=== PATIENT | female | born 1960 | race Hispanic/Latino ===

== ENCOUNTER 2017-03-29 08:30 | Outpatient (CLI) | payer BC ==
--- NOTE | 2017-03-29 11:28 | Mammography Report ---
Bilateral mammogram: Routine views are obtained. This was scattered nodular densities throughout both breasts. Most of these are circumscribed and quite small. No suspicious findings. The remainder of the breast pattern is generally fatty replaced. Comparison to outside images at 2015 and 2016 show no significant changes. CAD used. Impression: Stable nodular pattern. Recommendation: Annual mammogram followup. BI-RADS CATEGORY: 2 = Benign ACR BI-RADS MAMMOGRAPHIC CODES: 0 = Needs additional imaging evaluation; 1 = Negative; 2 = Benign; 3 = Probably benign; 4 = Suspicious; 5 = Malignant; 6 = Known biopsy-proven malignancy COMMENT: 1. Dense breast tissue, i.e., adenosis, fibrocystic changes, etc., may obscure an underlying neoplasm. 2. Approximately 10% of cancers are not detected with mammography. 3. A negative mammography report should not delay biopsy if a clinically suspicious mass is present.
== END 2017-03-29 08:31 | disposition home or self-care (01) ==
LOC: MAMMO 08:30
PROVIDERS: ATTEND Obstetrics & Gynecology
DX: R92.8 Other abnormal and inconclusive findings on diagnostic imaging of breast (principal)
CPT/HCPCS: 77066; G0204

== ENCOUNTER 2017-08-12 10:11 | Outpatient (CLI) | payer BC ==
--- NOTE | 2017-08-12 15:39 | Ultrasound Report ---
ULTRASOUND PELVIS COMPLETE - TRANSABDOMINAL AND TRANSVAGINAL: INDICATION: Screening. RLQ pain. COMPARISON: None similar. FINDINGS: Transabdominal and transvaginal pelvic sonography in this postmenopausal patient demonstrates an anteverted 8.8 x 3.8 x 4.9 cm uterus with endometrial thickness approximately 0.5 cm, endovaginal image 7. At least 3 upper uterine fibroids ranging between 1-2 cm noted on endovaginal images 12-18. No significant free fluid. Unremarkable ovaries, approximately 1.7 x 1 x 1 cm on the right and 1.6 x 1.3 x 1.5 cm on the left. CONCLUSION: Fibroids noted, as described. Thank you for the opportunity to participate in this patient's care.
== END 2017-08-12 10:12 | disposition home or self-care (01) ==
LOC: US 10:11
PROVIDERS: ATTEND Obstetrics & Gynecology
DX: D25.9 Leiomyoma of uterus, unspecified (principal); N85.4 Malposition of uterus; Z78.0 Asymptomatic menopausal state
CPT/HCPCS: 76830; 76856

== ENCOUNTER 2018-04-07 13:04 | Outpatient (CLI) | payer BC ==
--- NOTE | 2018-04-07 15:10 | Mammography Report ---
BILATERAL DIGITAL SCREENING MAMMOGRAM with CAD: 04/07/18 13:04:00 CLINICAL: Routine screening. COMPARISON: 03/29/17 FINDINGS: There are bilateral scattered areas of fibroglandular density.No mass, architectural distortion or suspicious calcifications. IMPRESSION: No mammographic evidence of malignancy. BI-RADS CATEGORY: 2 - - Benign RECOMMENDATION: Routine mammographic screening in one year. COMMENT: Patient follow-up letters are generated by our [employer] application.
== END 2018-04-07 13:05 | disposition home or self-care (01) ==
LOC: MAMMO 13:04
PROVIDERS: ATTEND Family Medicine
DX: Z12.31 Encounter for screening mammogram for malignant neoplasm of breast (principal)
CPT/HCPCS: 77067

== ENCOUNTER 2018-04-24 08:07 | Day surgery (SDC) | payer BC ==
--- NOTE | 2018-04-24 08:51 | Anesthesia Consultation ---
Anesthesia Consult and Med Hx Date of service: 04/24/18 - Airway Anesthetic Teeth Evaluation: Good ROM Head & Neck: Adequate Mental/Hyoid Distance: Adequate Mallampati Class: Class II Intubation Access Assessment: Probably Good - Pulmonary Exam CTA: Yes - Cardiac Exam Cardiac Exam: RRR - Pre-Operative Health Status ASA Pre-Surgery Classification: ASA3 Proposed Anesthetic Plan: MAC - Endocrine Hx Non-Insulin Dependent Diabetes: Yes Hx Hypothyroidism: Yes - Other Systems Hx Cancer: No (Family H/O colon cancer) - Additional Comments Anesthesia Medical History Comments: hypercholesterolemia
--- NOTE | 2018-04-24 08:51 | Anesthesia Day of Surgery ---
Anesthesia Day of Surgery - Day of Surgery Patient Examined: Yes Patient H&P Reviewed: Yes Patient is NPO: Yes
[2018-04-24] MEDS ORDERED: NACL 0.9% 1000 ML 1,000 ML IV SCH (09:00)
[2018-04-24] MEDS ORDERED: DIPRIVAN 10 MG/ML IV ONE ×2 (09:48)
--- NOTE | 2018-04-24 10:09 | Post Operative Note ---
Date of procedure: 04/24/18 Pre-op diagnosis: Screening colonoscopy, change in bowel habits Post-op diagnosis: other (small cecal polyp, internal hemorrhoids) Findings: Small cecal polyp removed with cold biopsy forceps Internal hemorrhoids Procedure: Colonoscopy with biopsy Anesthesia: MAC Surgeon: WASHINGTON TIJERINA Estimated blood loss: minimal Pathology: list (Jar A - cecal polyp) Specimen disposition: to lab Condition: stable Disposition: same day
--- NOTE | 2018-04-24 10:12 | Operative Report ---
Operative Report Operative Report: Colonoscopy Procedure Note with Biopsy forceps Date of procedure: 04/24/2018 Endoscopist: Pablo Cooney Pre-op diagnosis: Screening for colon cancer; change in bowel habits Post-op diagnosis: small cecal polyp removed with cold biopsy forceps; internal hemorrhoids Anesthesia: MAC Complications: No immediate complications Estimated blood loss: minimal Procedure: After consent was obtained, the patient was placed in the left lateral decubitus position. The fujinon colonoscope was inserted into the pat ient's rectum under direct vision, and advanced to the cecum without difficulty. The patient tolerated the procedure well. The views of the mucosa were good. The quality of prep was good. The patient's vital signs were monitored continuously throughout the procedure. Findings: There was an ~2mm sessile polyp in the cecal polyp removed and retrieved with cold biopsy forceps. Internal hemorrhoids were visualized on retro-flexion view. Impression: 1. Small cecal polyp removed with cold biopsy forceps 2. Internal hemorrhoids Recommendations: -follow-up pathology -repeat colonoscopy in 3-5 years for surveillance based on pathology results and due to family history of colon cancer
--- NOTE | 2018-04-24 10:26 | Post Anesthesia Evaluation ---
- Post Anesthesia Evaluation Patient Participated: Yes Airway Patent: Yes Stable Respiratory Function: Yes Temp > 96.8F: Yes Pain Manageable: Yes Adequeate Hydration: Yes Anesthesia Complications: No
[2018-04-24 10:54] VITALS: BP 110/45
== END 2018-04-24 08:08 | disposition home or self-care (01) ==
LOC: GIO 08:07
PROVIDERS: ATTEND Internal Medicine Gastroenterology
DX: D12.0 Benign neoplasm of cecum (principal); K64.8 Other hemorrhoids; E11.9 Type 2 diabetes mellitus without complications; E03.9 Hypothyroidism, unspecified; Z79.899 Other long term (current) drug therapy; Z79.82 Long term (current) use of aspirin; Z79.84 Long term (current) use of oral hypoglycemic drugs; E78.00 Pure hypercholesterolemia, unspecified; Z90.49 Acquired absence of other specified parts of digestive tract; Z80.0 Family history of malignant neoplasm of digestive organs; Z98.890 Other specified postprocedural states; Z98.891 History of uterine scar from previous surgery
CPT/HCPCS: 45380; 82962; 88305; J2704; J7030

== ENCOUNTER 2018-06-21 14:11 | Emergency (ER) | payer BC, OTHER ==
--- NOTE | 2018-06-21 14:33 | Emergency Department Report ---
Blank Doc - Documentation Documentation: This is a 58-year-old female that presents with left foot pain s/p equipment d ropped on her. This initial assessment/diagnostic orders/clinical plan/treatment(s) is/are subject to change based on patient's health status, clinical progression and re- assessment by fellow clinical providers in the ED. Further treatment and workup at subsequent clinical providers discretion. Patient/guardians urged not to elope from the ED as their condition may be serious if not clinically assessed and managed. Initial orders include: 1- Patient sent to [facility] for further evaluation and treatment 2- xray
[2018-06-21 14:40] VITALS: BP 135/65
--- NOTE | 2018-06-21 14:48 | Emergency Department Report ---
<LINCOLN MOORE - Last Filed: 06/21/18 16:14> ED Lower Extremity HPI - General Chief Complaint: Extremity Injury, Lower Stated Complaint: L FOOT PAIN Time Seen by Provider: 06/21/18 14:31 - Related Data Home Medications Medication Instructions Recorded Confirmed Last Taken Aspirin 1 tab PO DAILY 04/24/18 04/24/18 04/17/18 Citalopram Hydrobromide 1 tab PO HS 04/24/18 04/24/18 04/22/18 [Citalopram HBr] Levothyroxine [Synthroid] 1 tab PO DAILY 04/24/18 04/24/18 04/23/18 Metformin HCl 1 tab PO DAILY 04/24/18 04/24/18 04/23/18 Simvastatin 1 tab PO HS 04/24/18 04/24/18 04/22/18 glipiZIDE XL [Glucotrol Xl] 1 tab PO DAILY 04/24/18 04/24/18 04/23/18 Previous Rx's Medication Instructions Recorded Last Taken Type Ibuprofen [Motrin] 600 mg PO Q8H PRN #20 tablet 06/21/18 Unknown Rx traMADol [Ultram] 50 mg PO Q6HR PRN #10 tablet 06/21/18 Unknown Rx Allergies Allergy/AdvReac Type Severity Reaction Status Date / Time No Known Allergies Allergy Verified 04/24/18 08:37 ED Past Medical Hx - Medications Home Medications: Home Medications Medication Instructions Recorded Confirmed Last Taken Type Aspirin 1 tab PO DAILY 04/24/18 04/24/18 04/17/18 History Citalopram Hydrobromide 1 tab PO HS 04/24/18 04/24/18 04/22/18 History [Citalopram HBr] Levothyroxine [Synthroid] 1 tab PO DAILY 04/24/18 04/24/18 04/23/18 History Metformin HCl 1 tab PO DAILY 04/24/18 04/24/18 04/23/18 History Simvastatin 1 tab PO HS 04/24/18 04/24/18 04/22/18 History glipiZIDE XL [Glucotrol Xl] 1 tab PO DAILY 04/24/18 04/24/18 04/23/18 History Ibuprofen [Motrin] 600 mg PO Q8H PRN #20 tablet 06/21/18 Unknown Rx traMADol [Ultram] 50 mg PO Q6HR PRN #10 tablet 06/21/18 Unknown Rx ED Physical Exam - Expanded Lower Extremity Exam Left Foot/Toe exam: Present: tenderness (patient also had some lateral mid foot pain as well) ED Lower Extremity MDM - Radiology Data Radiology results: image reviewed (patient with a chip fracture of the proximal fifth metatarsal) - Medical Decision Making Patient fluid and a ortho shoe will be discharged home ED Disposition Clinical Impression: Metatarsal fracture Disposition: - TO HOME OR SELFCARE Is pt being admited?: No Does the pt Need Aspirin: No Condition: Stable Instructions: Foot Fracture in Adults (ED) Additional Instructions: Follow-up with a orthopedic doctor in 3-5 days or if symptoms worsen and continue return to the emergency department as soon as possible. Prescriptions: Ibuprofen [Motrin] 600 mg PO Q8H PRN #20 tablet PRN Reason: Pain traMADol [Ultram] 50 mg PO Q6HR PRN #10 tablet PRN Reason: Pain Referrals: LUTHER WALKER DPM [Staff Physician] - 3-5 Days Time of Disposition: 16:18 <ALONDRA WOLFF - Last Filed: 06/21/18 16:27> ED Lower Extremity HPI - General Source: patient Mode of arrival: Ambulatory Limitations: No Limitations - History of Present Illness Initial Comments: This is a 58-year-old female that presents with left foot pain. Stated that at work a chair fell on her foot. Denies any other complaints or trauma. Denies decreased sensation or ROM. Denies any allergies. MD Complaint: foot injury -: This afternoon Injury: Foot: Left Place: work Severity: mild Severity scale (0 -10): 8 Improves With: nothing Worsens With: nothing Associated Symptoms: ambulatory. denies: snap/pop sensation, swelling, numbness, tingling, unable to bear weight, able to partially bear weight ED Review of Systems ROS: Stated complaint: L FOOT PAIN Other details as noted in HPI Constitutional: denies: chills, fever Eyes: denies: eye pain, eye discharge, vision change ENT: denies: ear pain, throat pain Respiratory: denies: cough, shortness of breath, wheezing Cardiovascular: denies: chest pain, palpitations Endocrine: no symptoms reported Gastrointestinal: denies: abdominal pain, nausea, diarrhea Genitourinary: denies: urgency, dysuria, discharge Musculoskeletal: denies: back pain, joint swelling, arthralgia Skin: denies: rash, lesions Neurological: denies: headache, weakness, paresthesias Psychiatric: denies: anxiety, depression Hematological/Lymphatic: denies: easy bleeding, easy bruising ED Past Medical Hx - Past Medical History Hx Diabetes: Yes - Surgical History Hx Cholecystectomy: Yes - Social History Smoking Status: Never Smoker Substance Use Type: None ED Physical Exam - General Limitations: No Limitations General appearance: alert, in no apparent distress - Head Head exam: Present: atraumatic, normocephalic - Extremities Exam Extremities exam: Present: normal inspection, full ROM, tenderness, normal capillary refill. Absent: joint swelling - Expanded Lower Extremity Exam Left Hip exam: Present: normal inspection, full ROM. Absent: tenderness Upper Leg exam: Present: normal inspection, full ROM. Absent: tenderness Knee exam: Present: normal inspection, full ROM. Absent: tenderness Lower Leg exam: Present: normal inspection, full ROM. Absent: tenderness Ankle exam: Present: normal inspection, full ROM. Absent: tenderness, swelling, abrasion, laceration, ecchymosis, deformity, crepidus, dislocation, erythema, a nterior draw sign Foot/Toe exam: Present: normal inspection, full ROM, tenderness, ecchymosis. Absent: swelling, abrasion, laceration, deformity, crepidus, dislocation, eryth shara, amputation, puncture wound, foreign body, calcaneal tenderness, tenderness at base of 5th metatarsal, nail avulsion, subungual hematoma Neuro vascular tendon exam: Present: no vascular compromise Gait: Positive: observed and normal 1 - pain here - Back Exam Back exam: Present: normal inspection, full ROM - Neurological Exam Neurological exam: Present: alert, oriented X3 - Psychiatric Psychiatric exam: Present: normal affect, normal mood - Skin Skin exam: Present: warm, dry, intact, normal color. Absent: rash ED Course Vital Signs 06/21/18 14:34 Temperature 97.7 F Pulse Rate 84 Respiratory 20 Rate Blood Pressure 135/65 O2 Sat by Pulse 96 Oximetry - Reevaluation(s) Reevaluation #1: 06/21/18 14:46 Patient is speaking in full sentences with no signs of distress noted. ED Lower Extremity MDM - Medical Decision Making This is a 58-year-old female that presents with left foot pain. Patient was signed out to Dr. Qasim Roberts for further evaluation and treatment. Critical care attestation.: If time is entered above; I have spent that time in minutes in the direct care of this critically ill patient, excluding procedure time.
--- NOTE | 2018-06-21 16:18 | XRay Report ---
PROCEDURE: XR FOOT 3+V LT TECHNIQUE: Left foot 3 views HISTORY: left foot pain COMPARISONS: FINDINGS: No acute fracture identified. No dislocation seen. Joint spaces are within normal limits. Partially u nfused apophysis base of the fifth metatarsal noted. No radiopaque foreign bodies are observed. IMPRESSION: Negative no acute abnormality. This document is electronically signed by Ayo Trammell MD., June 21 2018 04:16:17 PM ET
== END 2018-06-21 16:37 | disposition home or self-care (01) ==
LOC: ED 14:11
DX: S92.302A Fracture of unspecified metatarsal bone(s), left foot, initial encounter for closed fracture (principal); E11.9 Type 2 diabetes mellitus without complications; W20.8XXA Other cause of strike by thrown, projected or falling object, initial encounter; Y93.89 Activity, other specified; Y92.89 Other specified places as the place of occurrence of the external cause; Y99.8 Other external cause status

== ENCOUNTER 2018-10-20 11:39 | Emergency (ER) | payer BC, OTHER ==
[2018-10-20] MEDS ORDERED: DECADRON IV ONE (11:48)
[2018-10-20] MEDS ORDERED: DECADRON IM ONE (12:01)
--- NOTE | 2018-10-20 12:09 | Emergency Department Report ---
- General Chief Complaint: Upper Respiratory Infection Stated Complaint: COUGH Time Seen by Provider: 10/20/18 11:48 Source: patient Mode of arrival: Ambulatory Limitations: No Limitations - History of Present Illness Initial Comments: is a 58-year-old female with past history of diabetes who is presenting with 1 week of cough. Cough is minimally productive. Patient said shortness of breath with the cough. Patient denies any nausea vomiting fevers or chills. - Related Data Home Medications Medication Instructions Recorded Confirmed Last Taken Aspirin 1 tab PO DAILY 04/24/18 04/24/18 04/17/18 Citalopram Hydrobromide 1 tab PO HS 04/24/18 04/24/18 04/22/18 [Citalopram HBr] Levothyroxine [Synthroid] 1 tab PO DAILY 04/24/18 04/24/18 04/23/18 Metformin HCl 1 tab PO DAILY 04/24/18 04/24/18 04/23/18 Simvastatin 1 tab PO HS 04/24/18 04/24/18 04/22/18 glipiZIDE XL [Glucotrol Xl] 1 tab PO DAILY 04/24/18 04/24/18 04/23/18 Previous Rx's Medication Instructions Recorded Last Taken Type Ibuprofen [Motrin] 600 mg PO Q8H PRN #20 tablet 06/21/18 Unknown Rx traMADol [Ultram] 50 mg PO Q6HR PRN #10 tablet 06/21/18 Unknown Rx ALBUTEROL Inhaler (OR & NICU) 2 puff IH QID PRN #1 inhalation 10/20/18 Unknown Rx [ProAir HFA Inhaler] Azithromycin [Zithromax Z-GERMAN] 250 mg PO DAILY #6 tablet 10/20/18 Unknown Rx Benzonatate [Tessalon Perles] 100 mg PO Q8HR #10 capsule 10/20/18 Unknown Rx guaiFENesin/CODEINE [Robitussin AC] 5 ml PO Q6HR PRN #100 oral.liqd 10/20/18 Un known Rx Allergies Allergy/AdvReac Type Severity Reaction Status Date / Time No Known Allergies Allergy Verified 10/20/18 11:39 ED Review of Systems ROS: Stated complaint: COUGH Other details as noted in HPI Comment: All other systems reviewed and negative ED Past Medical Hx - Past Medical History Hx Diabetes: Yes - Surgical History Hx Cholecystectomy: Yes - Social History Smoking Status: Never Smoker Substance Use Type: None - Medications Home Medications: Home Medications Medication Instructions Recorded Confirmed Last Taken Type Aspirin 1 tab PO DAILY 04/24/18 04/24/18 04/17/18 History Citalopram Hydrobromide 1 tab PO HS 04/24/18 04/24/18 04/22/18 History [Citalopram HBr] Levothyroxine [Synthroid] 1 tab PO DAILY 04/24/18 04/24/18 04/23/18 History Metformin HCl 1 tab PO DAILY 04/24/18 04/24/18 04/23/18 History Simvastatin 1 tab PO HS 04/24/18 04/24/18 04/22/18 History glipiZIDE XL [Glucotrol Xl] 1 tab PO DAILY 04/24/18 04/24/18 04/23/18 History Ibuprofen [Motrin] 600 mg PO Q8H PRN #20 tablet 06/21/18 Unknown Rx traMADol [Ultram] 50 mg PO Q6HR PRN #10 tablet 06/21/18 Unknown Rx ALBUTEROL Inhaler (OR & NICU) 2 puff IH QID PRN #1 inhalation 10/20/18 Unknown Rx [ProAir HFA Inhaler] Azithromycin [Zithromax Z-GERMAN] 250 mg PO DAILY #6 tablet 10/20/18 Unknown Rx Benzonatate [Tessalon Perles] 100 mg PO Q8HR #10 capsule 10/20/18 Unknown Rx guaiFENesin/CODEINE [Robitussin AC] 5 ml PO Q6HR PRN #100 oral.liqd 10/20/18 Unknown Rx ED Physical Exam - General Limitations: No Limitations General appearance: alert, in no apparent distress - Head Head exam: Present: atraumatic, normocephalic - Eye Eye exam: Present: normal appearance - ENT ENT exam: Present: mucous membranes moist - Neck Neck exam: Present: normal inspection - Respiratory Respiratory exam: Present: normal lung sounds bilaterally. Absent: respiratory distress, wheezes, rales, rhonchi - Cardiovascular Cardiovascular Exam: Present: regular rate, normal rhythm. Absent: systolic murmur, diastolic murmur, rubs, gallop - GI/Abdominal GI/Abdominal exam: Present: soft, normal bowel sounds. Absent: distended, tenderness, guarding, rebound - Extremities Exam Extremities exam: Present: normal inspection - Back Exam Back exam: Present: normal inspection - Neurological Exam Neurological exam: Present: alert, oriented X3 - Psychiatric Psychiatric exam: Present: normal affect, normal mood - Skin Skin exam: Present: warm, dry, intact, normal color. Absent: rash ED Course Vital Signs 10/20/18 11:41 Temperature 97.7 F Pulse Rate 68 Respiratory 20 Rate Blood Pressure 133/57 O2 Sat by Pulse 98 Oximetry ED Medical Decision Making - Medical Decision Making Patient's oxygen saturation is within normal limits and lung sounds are clear except for when she coughs. Patient has a bronchitic cough. Patient will be started on Z-German secondary to his duration of symptoms and her diabetes status the patient also given meds for symptomatically Critical care attestation.: If time is entered above; I have spent that time in minutes in the direct care of this critically ill patient, excluding procedure time. ED Disposition Clinical Impression: Upper respiratory infection Qualifiers: URI type: unspecified URI Qualified Code(s): J06.9 - Acute upper respiratory infection, unspecified Disposition: DC-01 TO HOME OR SELFCARE Is pt being admited?: No Does the pt Need Aspirin: No Condition: Stable Instructions: Upper Respiratory Infection (ED) Time of Disposition: 12:04
[2018-10-20 12:24] VITALS: BP 125/74
== END 2018-10-20 12:22 | disposition home or self-care (01) ==
LOC: ED 11:39
DX: J06.9 Acute upper respiratory infection, unspecified (principal); E11.9 Type 2 diabetes mellitus without complications; Z90.49 Acquired absence of other specified parts of digestive tract; Z98.890 Other specified postprocedural states; Z79.84 Long term (current) use of oral hypoglycemic drugs
CPT/HCPCS: 96372

== ENCOUNTER 2019-04-20 08:04 | Outpatient (CLI) | payer BC ==
--- NOTE | 2019-04-23 08:28 | Mammography Report ---
DIGITAL SCREENING MAMMOGRAM WITH CAD, 04/20/2019 INDICATION: Routine screening mammography. TECHNIQUE: Digital bilateral 2D mammography was obtained in the craniocaudal and mediolateral obliq ue projections. This examination was interpreted with the benefit of Computer-Aided Detection analysi s. COMPARISON: 04/07/2018 FINDINGS: Breast Density: The breasts are almost entirely fatty. There is no evidence of dominant mass, suspicious calcifications or architectural distortion in eithe r breast. IMPRESSION: No mammographic evidence of malignancy. Follow up recommendation: Routine yearly BI-RADS Category 1: Negative. A "normal" or negative report should not discourage follow up or biopsy of a clinically significant f inding. A written summary of these findings will be mailed to the patient. The patient will be entered into a mammography reporting system which will generate a reminder letter for the patient's next appointmen t at the appropriate interval. The [employer] recommends yearly mammograms starting at age 40 and continuing as l leah as a woman is in good health. Breast MRI is recommended for women with an approximate 20-25% or greater lifetime risk of breast cancer, including women with a strong family history of breast or ova yessenia cancer or who have been treated for Hodgkin's disease. Signer Name: Terry Fishman MD Signed: 04/23/2019 8:23 AM Workstation Name: [id number]
== END 2019-04-20 08:05 | disposition home or self-care (01) ==
LOC: MAMMO 08:04
PROVIDERS: ATTEND Family Medicine
DX: Z12.31 Encounter for screening mammogram for malignant neoplasm of breast (principal); N64.89 Other specified disorders of breast
CPT/HCPCS: 77067

== ENCOUNTER 2019-06-04 10:22 | Emergency (ER) | payer BC ==
[2019-06-04] MEDS ORDERED: IBUPROFEN 800 MG TAB PO ONE (10:50)
--- NOTE | 2019-06-04 11:34 | Emergency Department Report ---
ED Fall HPI - General Chief Complaint: Fall Stated Complaint: FALL 06/01/2019 Time Seen by Provider: 06/04/19 10:26 Source: patient Mode of arrival: Ambulatory - History of Present Illness Initial Comments: This is a 59-year-old female nontoxic, well nourished in appearance, no acute signs of distress presents to the ED with c/o of right elbow and right lateral rib pain 1 week. Patient stated that she had a mechanical trip and fall. Patient denies any other trauma. Patient denies any neck pain or back pain. Patient denies any numbness, tingling, fever, chills, nausea, vomiting, chest pain, shortness of breath, headache, stiff neck. Patient denies any joint swelling or joint redness. Patient denies decreased range of motion. Patient stated has decreased gait due to pain. Patient denies any allergies. MD Complaint: fall -: week(s) Fall Witnessed: no Place Fall Occurred: street Loss of Consciousness: none Prolonged Down Time?: no Symptoms Prior to Fall: none Location - Extremities: Right: Elbow Severity: mild Severity scale (0 -10): 8 Quality: aching Context: tripped/slipped Associated Symptoms: denies. denies: headache, neck pain, numbness, weakness, chest paint, shortness of breath, abdominal pain, hematuria, unable to walk, l ightheaded, vertigo, confusion - Related Data Home Medications Medication Instructions Recorded Confirmed Last Taken Aspirin 1 tab PO DAILY 04/24/18 04/24/18 04/17/18 Citalopram Hydrobromide 1 tab PO HS 04/24/18 04/24/18 04/22/18 [Citalopram HBr] Levothyroxine [Synthroid] 1 tab PO DAILY 04/24/18 04/24/18 04/23/18 Metformin HCl 1 tab PO DAILY 04/24/18 04/24/18 04/23/18 Simvastatin 1 tab PO HS 04/24/18 04/24/18 04/22/18 glipiZIDE XL [Glucotrol Xl] 1 tab PO DAILY 04/24/18 04/24/18 04/23/18 Previous Rx's Medication Instructions Recorded Last Taken Type Ibuprofen [Motrin] 600 mg PO Q8H PRN #20 tablet 06/21/18 Unknown Rx traMADoL [Ultram] 50 mg PO Q6HR PRN #10 tablet 06/21/18 Unknown Rx Albuterol INH(or & Nicu Only) 2 puff IH QID PRN #1 inhalation 10/20/18 Unknown Rx [ProAir HFA Inhaler] Azithromycin [Zithromax Z-GERMAN] 250 mg PO DAILY #6 tablet 10/20/18 Unknown Rx Benzonatate [Tessalon Perles] 100 mg PO Q8HR #10 capsule 10/20/18 Unknown Rx guaiFENesin/CODEINE [Robitussin AC] 5 ml PO Q6HR PRN #100 oral.liqd 10/20/18 Unknown Rx Acetaminophen/Codeine [Tylenol 1 tab PO Q6H PRN #12 tab 06/04/19 Unknown Rx /Codeine # 3 tab] Allergies Allergy/AdvReac Type Severity Reaction Status Date / Time No Known Allergies Allergy Verified 10/20/18 11:39 ED Review of Systems ROS: Stated complaint: fall06/01/2019 Other details as noted in HPI Constitutional: denies: chills, fever Eyes: denies: eye pain, eye discharge, vision change ENT: denies: ear pain, throat pain Respiratory: denies: cough, shortness of breath, wheezing Cardiovascular: denies: chest pain, palpitations Endocrine: no symptoms reported Gastrointestinal: denies: abdominal pain, nausea, diarrhea Genitourinary: denies: urgency, dysuria, discharge Musculoskeletal: denies: back pain, joint swelling, arthralgia Skin: denies: rash, lesions Neurological: denies: headache, weakness, paresthesias Psychiatric: denies: anxiety, depression Hematological/Lymphatic: denies: easy bleeding, easy bruising ED Past Medical Hx - Past Medical History Hx Diabetes: Yes - Surgical History Hx Cholecystectomy: Yes - Social History Smoking Status: Never Smoker Substance Use Type: None - Medications Home Medications: Home Medications Medication Instructions Recorded Confirmed Last Taken Type Aspirin 1 tab PO DAILY 04/24/18 04/24/18 04/17/18 History Citalopram Hydrobromide 1 tab PO HS 04/24/18 04/24/18 04/22/18 History [Citalopram HBr] Levothyroxine [Synthroid] 1 tab PO DAILY 04/24/18 04/24/18 04/23/18 History Metformin HCl 1 tab PO DAILY 0104/24/18 04/23/18 History Simvastatin 1 tab PO HS 04/24/18 04/24/18 04/22/18 History glipiZIDE XL [Glucotrol Xl] 1 tab PO DAILY 04/24/18 04/24/18 04/23/18 History Ibuprofen [Motrin] 600 mg PO Q8H PRN #20 tablet 06/21/18 Unknown Rx traMADoL [Ultram] 50 mg PO Q6HR PRN #10 tablet 06/21/18 Unknown Rx Albuterol INH(or & Nicu Only) 2 puff IH QID PRN #1 inhalation 10/20/18 Unknown Rx [ProAir HFA Inhaler] Azithromycin [Zithromax Z-GERMAN] 250 mg PO DAILY #6 tablet 10/20/18 Unknown Rx Benzonatate [Tessalon Perles] 100 mg PO Q8HR #10 capsule 10/20/18 Unknown Rx guaiFENesin/CODEINE [Robitussin AC] 5 ml PO Q6HR PRN #100 oral.liqd 10/20/18 Unknown Rx Acetaminophen/Codeine [Tylenol 1 tab PO Q6H PRN #12 tab 06/04/19 Unknown Rx /Codeine # 3 tab] ED Physical Exam - General Limitations: No Limitations General appearance: alert, in no apparent distress - Head Head exam: Present: atraumatic, normocephalic - Neck Neck exam: Present: normal inspection, full ROM. Absent: tenderness, meningismus, lymphadenopathy - Respiratory Respiratory exam: Present: normal lung sounds bilaterally, chest wall tenderness. Absent: respiratory distress, wheezes, rales, rhonchi, stridor, accessory muscle use, decreased breath sounds, prolonged expiratory - Cardiovascular Cardiovascular Exam: Present: regular rate, normal rhythm, normal heart sounds. Absent: bradycardia, tachycardia, irregular rhythm, systolic murmur, diastolic murmur, rubs, gallop - Extremities Exam Extremities exam: Present: normal inspection, full ROM, tenderness, normal capillary refill. Absent: joint swelling - Expanded Upper Extremity Exam Right General: Present: normal inspection Shoulder Exam: Present: normal inspection, full ROM. Absent: tenderness, swelling Upper Arm exam: Present: normal inspection, full ROM. Absent: tenderness, swelling Elbow exam: Present: normal inspection, full ROM, tenderness. Absent: swelling, abrasion, laceration, ecchymosis, deformity, crepidus, dislocation, erythema, effusion, pain w/ pronation/supination, tenderness over radial head Forearm Wrist exam: Present: normal inspection, full ROM. Absent: tenderness, swelling Hand Wrist exam: Present: normal inspection, full ROM. Absent: tenderness, swelling Vascular: Present: vascular compromise, normal capillary refill - Back Exam Back exam: Present: normal inspection, full ROM - Neurological Exam Neurological exam: Present: alert, oriented X3, normal gait - Psychiatric Psychiatric exam: Present: normal affect, normal mood - Skin Skin exam: Present: warm, dry, intact, normal color. Absent: rash ED Course - Reevaluation(s) Reevaluation #1: 06/04/19 11:35 Patient is speaking in full sentences with no signs of distress noted. ED Medical Decision Making - Medical Decision Making This is a 59-year-old female that presents with right elbow strain and right sided chest contusion. Patient is stable and was examined by me. I referred patient to an orthopedic doctor for further evaluation for possible MRI. X-ray has been obtained and dictated by the radiologist. Patient is notified of the x-ray report with noted by the patient. Patient does have normal gait with no tenderness and no joint swelling. No ecchymosis. no joint redness or swelling. Not warm to touch. No signs of cellulites present. Patient received elbow sling. Patient was instructed to RICE therapy. Patient received Motrin for pain. Patient is discharged with Naproxen. At time of discharge, the patient does not seem toxic or ill in appearance. No acute signs of distress noted. Patient agrees to discharge treatment plan of care. No further questions noted by the patient. Critical care attestation.: If time is entered above; I have spent that time in minutes in the direct care of this critically ill patient, excluding procedure time. ED Disposition Clinical Impression: Strain of right elbow Qualifiers: Encounter type: initial encounter Qualified Code(s): S46.911A - Strain of unspecified muscle, fascia and tendon at shoulder and upper arm level, right arm, initial encounter Contusion of right chest wall Qualifiers: Encounter type: initial encounter Qualified Code(s): S20.211A - Contusion of ri ght front wall of thorax, initial encounter Disposition: TO HOME OR SELFCARE Is pt being admited?: No Does the pt Need Aspirin: No Condition: Stable Instructions: RICE Therapy (ED), Acetaminophen/Codeine (By mouth) Additional Instructions: Follow-up with a orthopedic doctor in 3-5 days or if symptoms worsen and continue return to emergency room as soon as possible. Do not operate any machinery while taking Tylenol with codeine as this may cause drowsiness. Prescriptions: Acetaminophen/Codeine [Tylenol /Codeine # 3 tab] 1 tab PO Q6H PRN #12 tab PRN Reason: Pain , Severe (7-10) Referrals: JEANNIE GOTTI [Other] - 3-5 Days KIM CARR MD [Staff Physician] - 3-5 Days AVRIL LEWIS MD [Staff Physician] - 3-5 Days Forms: Work/School Release Form(ED)
[2019-06-04 12:50] VITALS: BP 133/64
--- NOTE | 2019-06-06 15:50 | XRay Report ---
RIGHT RIBS 4 VIEWS INDICATION: fall with pain. COMPARISON: None. IMPRESSION: No displaced right rib deformity is detected on x-ray. The right lung is well-aerated. LEFT ELBOW 3 VIEWS INDICATION: fall with pain. COMPARISON: None. IMPRESSION: No acute osseous or soft tissue abnormality. No significant DJD. Signer Name: Jayy Dash Jr, MD Signed: 06/04/2019 11:00 AM Workstation Name: [id number]
== END 2019-06-04 12:57 | disposition home or self-care (01) ==
LOC: ED 10:22
DX: S46.911A Strain of unspecified muscle, fascia and tendon at shoulder and upper arm level, right arm, initial encounter (principal); S20.211A Contusion of right front wall of thorax, initial encounter; E11.9 Type 2 diabetes mellitus without complications; W18.30XA Fall on same level, unspecified, initial encounter; Y93.89 Activity, other specified; Y92.89 Other specified places as the place of occurrence of the external cause; Y99.8 Other external cause status
CPT/HCPCS: 99283

== ENCOUNTER 2019-08-29 07:56 | Outpatient (CLI) | payer BC ==
[2019-08-29 08:24] LABS: Basophils # (Auto) 0.1 K/mm3 (0.0-0.1); Basophils % (Auto) 0.9 % (0.0-1.8); Eosinophils # (Auto) 0.1 K/mm3 (0.0-0.4); Eosinophils % (Auto) 1.7 % (0.0-4.3); Hematocrit 43.5 % (30.3-42.9); Hemoglobin 14.8 gm/dl (10.1-14.3); Lymphocytes # (Auto) 2.9 K/mm3 (1.2-5.4); Mean Corpuscular HGB Conc 34 % (30-34); Mean Corpuscular Volume 86 fl (79-97); Monocytes # (Auto) 0.5 K/mm3 (0.0-0.8); Monocytes % (Auto) 7.6 % (0.0-7.3); Platelet Count 224 K/mm3 (140-440); Red Blood Count 5.05 M/mm3 (3.65-5.03); Red Cell Distribution Width 13.3 % (13.2-15.2)
[2019-08-29 08:37] LABS: Alanine Aminotransferase 17 units/L (7-56); Albumin 4.1 g/dL (3.9-5); BUN/Creatinine Ratio 17; Blood Urea Nitrogen 12 mg/dL (7-17); Chol/HDL Ratio 2.63 %; HDL Cholesterol 61 mg/dL (40-59); Hemolysis Index 8; LDL Cholesterol,Direct 82 mg/dL (50-130)
== END 2019-08-29 07:57 | disposition home or self-care (01) ==
LOC: LAB 07:56
PROVIDERS: ATTEND Nurse Practitioner Family
DX: Z79.899 Other long term (current) drug therapy (principal)
CPT/HCPCS: 36415; 80053; 80061; 83036; 84443; 85025

== ENCOUNTER 2019-11-07 12:48 | Emergency (ER) | payer BC ==
--- NOTE | 2019-11-07 13:54 | XRay Report ---
CHEST 2 VIEWS INDICATION: CP/ UPPER BACK PAIN. COMPARISON: None. FINDINGS: Support devices: None. Heart: Within normal limits. Lungs/Pleura: No acute air space or interstitial disease. No significant pleural effusion. IMPRESSION: No acute findings. Signer Name: Gold Elmore MD Signed: 11/07/2019 1:49 PM Workstation Name: [id number]
[2019-11-07 14:28] VITALS: BP 124/52
--- NOTE | 2019-11-07 15:09 | Emergency Department Report ---
ED Back Pain/Injury HPI - General Chief Complaint: Upper Respiratory Infection Stated Complaint: cp/back pain Time Seen by Provider: 11/07/19 14:14 Source: patient Limitations: No Limitations - History of Present Illness Initial Comments: This is a 59-year-old female with no prior medical conditions who presents to the ED complaining of right-sided mid clavicular upper back pain that worsened today while she was at work. Patient states she has been having little bit of pain on her upper to mid right back which worsened today while she was at work. Patient is felt states the pain felt like a horse kicking her in the back. Patient states she recently was diagnosed with mono and currently completed of acyclovir prescription. He denies any shortness of breath or chest pain. Evaluated due to the amount of pain she was experiencing. Patient states pain comes and goes immediately MD Complaint: back pain Similar Symptoms Previously: No Place: work Radiation: none Severity: moderate Severity scale (0 -10): 7 Quality: sharp Consistency: now resolved - Related Data Home Medications Medication Instructions Recorded Confirmed Last Taken Aspirin 1 tab PO DAILY 04/24/18 04/24/18 04/17/18 Citalopram Hydrobromide 1 tab PO HS 04/24/18 04/24/18 04/22/18 [Citalopram HBr] Levothyroxine [Synthroid] 1 tab PO DAILY 04/24/18 04/24/18 04/23/18 Metformin HCl 1 tab PO DAILY 04/24/18 04/24/18 04/23/18 Simvastatin 1 tab PO HS 04/24/18 04/24/18 04/22/18 glipiZIDE XL [Glucotrol Xl] 1 tab PO DAILY 04/24/18 04/24/18 04/23/18 Previous Rx's Medication Instructions Recorded Last Taken Type Ibuprofen [Motrin] 600 mg PO Q8H PRN #20 tablet 06/21/18 Unknown Rx traMADoL [Ultram] 50 mg PO Q6HR PRN #10 tablet 06/21/18 Unknown Rx Albuterol Mdi (or & Nicu Only) 2 puff IH QID PRN #1 inhalation 10/20/18 Unknown Rx [ProAir HFA Inhaler] Azithromycin [Zithromax Z-GERMAN] 250 mg PO DAILY #6 tablet 10/20/18 Unknown Rx Benzonatate [Tessalon Perles] 100 mg PO Q8HR #10 capsule 10/20/18 Unknown Rx guaiFENesin/CODEINE [Robitussin AC] 5 ml PO Q6HR PRN #100 oral.liqd 10/20/18 Unknown Rx Acetaminophen/Codeine [Tylenol 1 tab PO Q6H PRN #12 tab 06/04/19 Unknown Rx /Codeine # 3 tab] Allergies Allergy/AdvReac Type Severity Reaction Status Date / Time No Known Allergies Allergy Verified 11/07/19 12:49 ED Review of Systems ROS: Stated complaint: cp/back pain Other details as noted in HPI ED Past Medical Hx - Past Medical History Hx Diabetes: Yes - Surgical History Hx Cholecystectomy: Yes - Social History Smoking Status: Never Smoker Substance Use Type: Alcohol - Medications Home Medications: Home Medications Medication Instructions Recorded Confirmed Last Taken Type Aspirin 1 tab PO DAILY 04/24/18 04/24/18 04/17/18 History Citalopram Hydrobromide 1 tab PO HS 04/24/18 04/24/18 04/22/18 History [Citalopram HBr] Levothyroxine [Synthroid] 1 tab PO DAILY 04/24/18 04/24/18 04/23/18 History Metformin HCl 1 tab PO DAILY 04/24/18 04/24/18 04/23/18 History Simvastatin 1 tab PO HS 04/24/18 04/24/18 04/22/18 History glipiZIDE XL [Glucotrol Xl] 1 tab PO DAILY 04/24/18 04/24/18 04/23/18 History Ibuprofen [Motrin] 600 mg PO Q8H PRN #20 tablet 06/21/18 Unknown Rx traMADoL [Ultram] 50 mg PO Q6HR PRN #10 tablet 06/21/18 Unknown Rx Albuterol Mdi (or & Nicu Only) 2 puff IH QID PRN #1 inhalation 10/20/18 Unknown Rx [ProAir HFA Inhaler] Azithromycin [Zithromax Z-GERMAN] 250 mg PO DAILY #6 tablet 10/20/18 Unknown Rx Benzonatate [Tessalon Perles] 100 mg PO Q8HR #10 capsule 10/20/18 Unknown Rx guaiFENesin/CODEINE [Robitussin AC] 5 ml PO Q6HR PRN #100 oral.liqd 10/20/18 Unknown Rx Acetaminophen/Codeine [Tylenol 1 tab PO Q6H PRN #12 tab 06/04/19 Unknown Rx /Codeine # 3 tab] ED Physical Exam - General Limitations: No Limitations ED Course Vital Signs 11/07/19 11/07/19 11/07/19 12:49 13:06 13:15 Temperature 98.7 F Pulse Rate 98 H 93 H Respiratory 18 11 L Rate Blood Pressure 156/66 125/52 O2 Sat by Pulse 98 96 96 Oximetry 11/07/19 11/07/19 13:30 15:27 Temperature Pulse Rate 89 Respiratory 14 18 Rate Blood Pressure 124/52 O2 Sat by Pulse 95 99 Oximetry ED Medical Decision Making - EKG Data EKG shows normal: sinus rhythm Rate: normal - EKG Data Interpretation: normal EKG 11/07/19 15:24 Probable old infarct noted on EKG - Radiology Data Radiology results: report reviewed, image reviewed CHEST 2 VIEWS INDICATION: CP/ UPPER BACK PAIN. COMPARISON: None. FINDINGS: Support devices: None. Heart: Within normal limits. Lungs/Pleura: No acute air space or interstitial disease. No significant pleural effusion. IMPRESSION: No acute findings. Signer Name: Gold Elmore MD Signed: 11/07/2019 1:49 PM Workstation Name: [id number] Transcribed By: ES Dictated By: Gold Elmore MD Electronically Authenticated By: Gold Elmore MD Signed Date/Time: 11/07/19 1349 - Medical Decision Making 59-year-old female who presented with upper back pain. Patient was in no acute distress upon reevaluation. EKG was negative Chest x-ray was negative Discussed all findings with the patient. Discussed with patient to monitor symptoms and not any worsening to return to ED immediately. Patient was in no acute distress or respiratory distress. Discussed follow-up with primary care physician. Critical care attestation.: If time is entered above; I have spent that time in minutes in the direct care of this critically ill patient, excluding procedure time. ED Disposition Clinical Impression: Costochondritis, Upper back pain on right side Disposition: DC-01 TO HOME OR SELFCARE Is pt being admited?: No Does the pt Need Aspirin: No Condition: Stable Instructions: Costochondritis (ED), Trigger Point Pain (ED) Additional Instructions: Make sure to follow up with the primary care physician as discussed. Follow-up with [facility] for your abnormal EKG Continue to take Motrin as needed for pain. If you have any worsening symptoms or develop new symptoms please return to ED immediately. Referrals: JEANNIE GOTTI MD [Primary Care Provider] - 3-5 Days Forms: Accompanied Note, Work/School Release Form(ED) Time of Disposition: 15:23
== END 2019-11-07 15:39 | disposition home or self-care (01) ==
LOC: ED 12:48
DX: M94.0 Chondrocostal junction syndrome [Tietze] (principal); M54.9 Dorsalgia, unspecified; E11.9 Type 2 diabetes mellitus without complications; Z79.899 Other long term (current) drug therapy; Z90.49 Acquired absence of other specified parts of digestive tract
CPT/HCPCS: 71046; 93005

== ENCOUNTER 2019-11-21 09:19 | Outpatient (CLI) | payer BC ==
[2019-11-21 14:51] LABS: Basophils # (Auto) 0.1 K/mm3 (0.0-0.1); Basophils % (Auto) 1.7 % (0.0-1.8); Eosinophils # (Auto) 0.2 K/mm3 (0.0-0.4); Eosinophils % (Auto) 2.6 % (0.0-4.3); Hematocrit 40.9 % (30.3-42.9); Hemoglobin 14.1 gm/dl (10.1-14.3); Lymphocytes % (Auto) 49.6 % (13.4-35.0); Mean Corpuscular HGB Conc 35 % (30-34); Mean Corpuscular Volume 88 fl (79-97); Monocytes # (Auto) 0.5 K/mm3 (0.0-0.8); Platelet Count 235 K/mm3 (140-440); Red Blood Count 4.64 M/mm3 (3.65-5.03); Red Cell Distribution Width 13.3 % (13.2-15.2)
[2019-11-21 15:02] LABS: Alanine Aminotransferase 15 units/L (7-56); Albumin 3.9 g/dL (3.9-5); Blood Urea Nitrogen 8 mg/dL (7-17); Calcium 8.7 mg/dL (8.4-10.2); Hemolysis Index 17
[2019-11-21 15:13] LABS: BUN/Creatinine Ratio 13
== END 2019-11-21 09:20 | disposition home or self-care (01) ==
LOC: LAB 09:19
PROVIDERS: ATTEND Family Medicine
DX: Z13.228 Encounter for screening for other metabolic disorders (principal); R73.09 Other abnormal glucose; R68.89 Other general symptoms and signs; R94.6 Abnormal results of thyroid function studies; Z79.899 Other long term (current) drug therapy
CPT/HCPCS: 36415; 80053; 83036; 84443; 85025

== ENCOUNTER 2020-02-07 07:53 | Outpatient (CLI) | payer BC ==
[2020-02-07 08:25] LABS: Basophils % (Auto) 0.8 % (0.0-1.8); Eosinophils # (Auto) 0.1 K/mm3 (0.0-0.4); Eosinophils % (Auto) 1.5 % (0.0-4.3); Hemoglobin 14.2 gm/dl (10.1-14.3); Lymphocytes # (Auto) 2.3 K/mm3 (1.2-5.4); Lymphocytes % (Auto) 38.3 % (13.4-35.0); Mean Corpuscular HGB Conc 35 % (30-34); Mean Corpuscular Volume 88 fl (79-97); Monocytes # (Auto) 0.4 K/mm3 (0.0-0.8); Monocytes % (Auto) 6.6 % (0.0-7.3); Platelet Count 198 K/mm3 (140-440); Red Blood Count 4.67 M/mm3 (3.65-5.03)
[2020-02-07 08:52] LABS: Alanine Aminotransferase 14 units/L (7-56); Blood Urea Nitrogen 9 mg/dL (7-17); Calcium 8.9 mg/dL (8.4-10.2); Hemolysis Index 4
[2020-02-07 08:53] LABS: BUN/Creatinine Ratio 15
[2020-02-07 09:38] LABS: Bacteria,Urine 1+ /HPF (Negative); Bilirubin,Urine NEG (Negative); Blood,Urine SM (Negative); Color,Urine Yellow (Yellow); Mucus,Urine 2+ /HPF; Protein,Urine <15 mg/dL mg/dL (Negative); Urobilinogen,Urine < 2.0 mg/dL (<2.0)
== END 2020-02-07 07:54 | disposition home or self-care (01) ==
LOC: LAB 07:53
PROVIDERS: ATTEND Family Medicine
DX: E11.9 Type 2 diabetes mellitus without complications (principal); I10 Essential (primary) hypertension; E03.9 Hypothyroidism, unspecified
CPT/HCPCS: 36415; 80053; 81001; 83036; 84443; 85025

== ENCOUNTER 2020-06-23 13:02 | Emergency (ER) | payer SELFPAY ==
[2020-06-23] MEDS ORDERED: IBUPROFEN 600 MG TAB PO ONE (13:20)
--- NOTE | 2020-06-23 13:23 | Emergency Department Report ---
ED Extremity Problem HPI - General Chief complaint: Extremity Injury, Lower Stated complaint: RT FOOT PAIN Time Seen by Provider: 06/23/20 13:19 Source: patient Mode of arrival: Ambulatory Limitations: No Limitations - History of Present Illness Initial comments: Patient is a 60-year-old female presents to emergency department for evaluation of right knee and right foot injuries sustained during mechanical fall last night during which she slipped while tending to her dog. Patient denies head injury, ankle injury. Denies preceding weakness or dizziness. - Related Data Home Medications Medication Instructions Recorded Confirmed Last Taken Aspirin 1 tab PO DAILY 04/24/18 04/24/18 04/17/18 Citalopram Hydrobromide 1 tab PO HS 04/24/18 04/24/18 04/22/18 [Citalopram HBr] Levothyroxine [Synthroid] 1 tab PO DAILY 04/24/18 04/24/18 04/23/18 Metformin HCl 1 tab PO DAILY 04/24/18 04/24/18 04/23/18 Simvastatin 1 tab PO HS 04/24/18 04/24/18 04/22/18 glipiZIDE XL [Glucotrol Xl] 1 tab PO DAILY 04/24/18 04/24/18 04/23/18 Previous Rx's Medication Instructions Recorded Last Taken Type Ibuprofen [Motrin] 600 mg PO Q8H PRN #20 tablet 06/21/18 Unknown Rx traMADoL [Ultram] 50 mg PO Q6HR PRN #10 tablet 06/21/18 Unknown Rx Albuterol Mdi (or & Nicu Only) 2 puff IH QID PRN #1 inhalation 10/20/18 Unknown Rx [ProAir HFA Inhaler] Azithromycin [Zithromax Z-GERMAN] 250 mg PO DAILY #6 tablet 10/20/18 Unknown Rx Benzonatate [Tessalon Perles] 100 mg PO Q8HR #10 capsule 10/20/18 Unknown Rx guaiFENesin/CODEINE [Robitussin AC] 5 ml PO Q6HR PRN #100 oral.liqd 10/20/18 Unknown Rx Acetaminophen/Codeine [Tylenol 1 tab PO Q6H PRN #12 tab 06/04/19 Unknown Rx /Codeine # 3 tab] Allergies Allergy/AdvReac Type Severity Reaction Status Date / Time No Known Allergies Allergy Verified 11/07/19 12:49 ED Review of Systems ROS: Stated complaint: RT FOOT PAIN Other details as noted in HPI Comment: All other systems reviewed and negative ED Past Medical Hx - Past Medical History Previous Medical History?: Yes Hx Diabetes: Yes - Surgical History Past Surgical History?: Yes Hx Cholecystectomy: Yes - Social History Smoking Status: Never Smoker Substance Use Type: Alcohol - Medications Home Medications: Home Medications Medication Instructions Recorded Confirmed Last Taken Type Aspirin 1 tab PO DAILY 04/24/18 04/24/18 04/17/18 History Citalopram Hydrobromide 1 tab PO HS 04/24/18 04/24/18 04/22/18 History [Citalopram HBr] Levothyroxine [Synthroid] 1 tab PO DAILY 04/24/18 04/24/18 04/23/18 History Metformin HCl 1 tab PO DAILY 04/24/18 04/24/18 04/23/18 History Simvastatin 1 tab PO HS 04/24/18 04/24/18 04/22/18 History glipiZIDE XL [Glucotrol Xl] 1 tab PO DAILY 04/24/18 04/24/18 04/23/18 History Ibuprofen [Motrin] 600 mg PO Q8H PRN #20 tablet 06/21/18 Unknown Rx traMADoL [Ultram] 50 mg PO Q6HR PRN #10 tablet 06/21/18 Unknown Rx Albuterol Mdi (or & Nicu Only) 2 puff IH QID PRN #1 inhalation 10/20/18 Unknown Rx [ProAir HFA Inhaler] Azithromycin [Zithromax Z-GERMAN] 250 mg PO DAILY #6 tablet 10/20/18 Unknown Rx Benzonatate [Tessalon Perles] 100 mg PO Q8HR #10 capsule 10/20/18 Unknown Rx guaiFENesin/CODEINE [Robitussin AC] 5 ml PO Q6HR PRN #100 oral.liqd 10/20/18 Unknown Rx Acetaminophen/Codeine [Tylenol 1 tab PO Q6H PRN #12 tab 06/04/19 Unknown Rx /Codeine # 3 tab] ED Physical Exam - General Limitations: No Limitations General appearance: alert, in no apparent distress - Head Head exam: Present: atraumatic, normocephalic - Eye Eye exam: Present: normal appearance - ENT ENT exam: Present: mucous membranes moist - Neck Neck exam: Present: normal inspection - Respiratory Respiratory exam: Present: normal lung sounds bilaterally. Absent: respiratory distress - Cardiovascular Cardiovascular Exam: Present: regular rate, normal rhythm. Absent: systolic murmur, diastolic murmur, rubs, gallop - GI/Abdominal GI/Abdominal exam: Present: soft, normal bowel sounds - Extremities Exam Extremities exam: Present: normal inspection - Back Exam Back exam: Present: other (Moderate tenderness and swelling to right first MTP, (+) moderate tenderness to right medial knee with trace effusion) - Neurological Exam Neurological exam: Present: alert, oriented X3 - Psychiatric Psychiatric exam: Present: normal affect, normal mood - Skin Skin exam: Present: warm, dry, intact, normal color. Absent: rash ED Course Vital Signs 06/23/20 13:33 Respiratory 18 Rate - Reevaluation(s) Reevaluation #1: 06/23/20 15:10 Patient treated with Motrin 600 mg p.o. x1 with moderate relief of symptoms. Patient given crutches with crutch with instructions. Advised to follow-up with orthopedics in 1 to 2 days for reevaluation and possible MRI of knee. ED Medical Decision Making - Lab Data Vital Signs 06/23/20 13:33 Respiratory 18 Rate - Radiology Data Radiology results: report reviewed Right knee x-ray, right foot x-ray negative per radiology Critical care attestation.: If time is entered above; I have spent that time in minutes in the direct care of this critically ill patient, excluding procedure time. ED Disposition Clinical Impression: Injury of left foot, Left knee injury Disposition: - TO HOME OR SELFCARE Is pt being admited?: No Condition: Stable Instructions: Knee Sprain, Adult, [id number], Crush Injury of the Foot Additional Instructions: Follow-up with orthopedics in 1 to 2 days for reevaluation. Please note you may require MRI of your knee. Return to the emergency department for worsening symptoms. Referrals: PRIMARY CARE,MD [Primary Care Provider] - 3-5 Days
--- NOTE | 2020-06-23 14:26 | XRay Report ---
RIGHT KNEE 3 VIEWS INDICATION: trauma. COMPARISON: None. IMPRESSION: No acute osseous or soft tissue abnormality. No significant DJD. A small joint effusi on is suspected on the lateral image. RIGHT FOOT 3 VIEWS INDICATION: trauma. COMPARISON: None. IMPRESSION: No acute osseous or soft tissue abnormality. Mild osteoarthritic changes are identifi ed at the first metatarsophalangeal joint. Moderate to large plantar spur. Signer Name: Jayy Dash Jr, MD Signed: 06/23/2020 2:22 PM Workstation Name: [id number]
== END 2020-06-23 14:45 | disposition home or self-care (01) ==
LOC: ED 13:02
DX: S89.92XA Unspecified injury of left lower leg, initial encounter (principal); S99.922A Unspecified injury of left foot, initial encounter; E11.9 Type 2 diabetes mellitus without complications; Z79.899 Other long term (current) drug therapy; Z90.49 Acquired absence of other specified parts of digestive tract; W01.0XXA Fall on same level from slipping, tripping and stumbling without subsequent striking against object, initial encounter; Y93.89 Activity, other specified; Y92.89 Other specified places as the place of occurrence of the external cause; Y99.8 Other external cause status